=== PATIENT | female | born 1995 | race Caucasian/White ===

== ENCOUNTER 2020-06-22 15:59 | Inpatient (IN) | payer OTHER ==
[2020-06-22] MEDS ORDERED: Ampicillin 2 GM in Sodium Chloride 0.9% 100 ML IV ONE (16:07)
[2020-06-22] MEDS ORDERED: Ondansetron 4 MG/2 ML SDV IVPUSH PRN ×2 (16:07→16:21)
[2020-06-22] MEDS ORDERED: Sodium Chloride 0.9% 10 ML Syringe FLUSH PRN (16:07)
[2020-06-22] MEDS ORDERED: Nalbuphine 10 MG/1 ML Vial IVPUSH PRN (16:07)
[2020-06-22] MEDS ORDERED: Calcium Carbonate 500 MG Tab.Chew PO PRN (16:07)
[2020-06-22] MEDS ORDERED: Oxytocin/Lactated Ringers 10 UNIT/1,000 ML BAG IV SCH ×2 (16:15→18:15)
[2020-06-22] MEDS ORDERED: ePHEDrine 50 MG/ML SDV IVPUSH PRN (16:21)
[2020-06-22] MEDS ORDERED: fentaNYL 100 MCG/2 ML SDV EPIDUR PRN (16:22)
--- NOTE | 2020-06-22 16:24 | PCM.PREANE ---
Preanesthetic Assessment - Procedure Proposed Procedure: Epidural - Anesthesia/Transfusion/Family Hx Anesthesia History: Prior Anesthesia Without Reaction Family History of Anesthesia Reaction: No Transfusion History: No Prior Transfusion(s) Intubation History: Unknown - Review of Systems General: No Symptoms Pulmonary: No Symptoms Cardiovascular: No Symptoms Gastrointestinal: No Symptoms Neurological: No Symptoms Other: Reports: None - Physical Assessment NPO Status Date: 06/22/20 NPO Status Time: 18:00 Vital Signs: HR: 109 B/P: 138/87 Resp: 20 Sat: 99% Temp: 101 Height: 1.68 m Weight: 95.345 kg ASA Class: 2 Mental Status: Alert & Oriented x3 Airway Class: Mallampati = 3 Dentition: Reports: Normal Dentition, Caries Thyro-Mental Finger Breadths: 3 Mouth Opening Finger Breadths: 3 ROM/Head Extension: Full Lungs: Clear to Auscultation, Normal Respiratory Effort Cardiovascular: Regular Rate, Regular Rhythm, No Murmurs - Allergies Allergies/Adverse Reactions: Allergies Allergy/AdvReac Type Severity Reaction Status Date / Time chlorhexidine Allergy Hives Verified 06/22/20 16:07 - Anesthesia Plan Pre-Op Medication Ordered: None - Acknowledgements Anesthesia Type Planned: Epidural Pt an Appropriate Candidate for the Planned Anesthesia: Yes Alternatives and Risks of Anesthesia Discussed w Pt/Guardian: Yes Pt/Guardian Understands and Agrees with Anesthesia Plan: Yes PreAnesthesia Questionnaire - CURRENT (IN HOUSE) MEDS Current Meds: Current Medications Calcium Carbonate/Glycine (Tums) 1,000 mg PO Q2H PRN PRN Reason: Indigestion Ephedrine Sulfate (Ephedrine Sulfate) 5 mg IVPUSH ASDIRECTED PRN PRN Reason: Hypotension Fentanyl (Sublimaze) 100 mcg EPIDUR ONETIME PRN PRN Reason: Pain Fentanyl/Bupivacaine HCl (Fentanyl/Bupivacaine/Ns 2 Mcg-0.125% 100 Ml) 100 ml EPIDUR ASDIRECTED SALVADOR Ampicillin Sodium 2 gm/ Sodium (Chloride) 100 mls @ 200 mls/hr IV ONETIME ONE Stop: 06/22/20 16:36 Ampicillin Sodium 1 gm/ Sodium (Chloride) 100 mls @ 200 mls/hr IV Q4H SALVADOR Oxytocin/Lactated Ringer's (Pitocin In Lr 10 Units/1,000 Ml) 10 unit in 1,000 mls @ 500 mls/hr IV .CONTINUOUS SALVADOR Lactated Ringer's (Ringers, Lactated) 1,000 mls @ 100 mls/hr IV ASDIRECTED SALVADOR Miscellaneous Medication (Phenylephrine 1 Mg/10 Ml-Ns) 0 mg IVPUSH ONETIME ONE Stop: 06/22/20 16:22 Nalbuphine HCl (Nubain) 10 mg IVPUSH Q2H PRN PRN Reason: Pain Ondansetron HCl (Zofran) 4 mg IVPUSH Q4H PRN PRN Reason: Nausea/Vomiting Ondansetron HCl (Zofran) 4 mg IVPUSH ONETIME PRN PRN Reason: Nausea/Vomiting Sodium Chloride (Saline Flush) 10 ml FLUSH ASDIRECTED PRN PRN Reason: Keep Vein Open
[2020-06-22] MEDS ORDERED: Bupivacaine/fentaNYL/NS 100 ML Bag EPIDUR SCH (16:30)
[2020-06-22] MEDS: Lactated Ringers 1,000 ML IV SCH (17:56)
[2020-06-22] MEDS ORDERED: Ampicillin 1 GM in Sodium Chloride 0.9% 100 ML IV SCH (20:00)
--- NOTE | 2020-06-22 21:48 | PCM.LDHP ---
L&D History of Present Illness - General Date of Service: 06/22/20 Admit Problem/Dx: Patient Status Order with Admit Dx/Problem 06/22/20 16:07 Patient Status [ADT] Routine Admission Diagnosis/Problem Admission Diagnosis/Problem 06/22/20 21:40 Rd is a 25-year-old 1 para 0 white female admitted on 06/22/2020 at 39-0/7 weeks gestational age for induction of labor. Source of Information: Patient History Limitations: Reports: No Limitations - History of Present Illness Introduction:: Rd is a 25-year-old 1 para 0 white female admitted on 06/22/2020 at 39-0/7 weeks gestational age for induction of labor. Process of induction of labor its risks, benefits, alternatives of care including allowing for natural onset of labor and follow-up are all discussed in detail with patient. She ike ears understand and wishes to proceed. WEATHER FORECASTER history: Patient is 1 para 0. Her LYNDON of 06/29/2020 was determined by an early ultrasound done at 12 weeks and 3 days. It was supported by at least 2 other ultrasounds done in the . Patient had menarche at age [age]. Positive hCG was on 10/27/2019. Cycles come q. 26 days, last for 5 to 7 days. Her last menstrual period was 10/02/2019. She denies any STIs or abnormal Pap smears in the past. course: Patient's first visit was on 12/19/2019 at 12 weeks and 3 days. She is seen on a very regular basis throughout the . Her vital signs been stable throughout the . Her weight increased from a pregravida weight of 186 pounds to a final weight of 206 pounds for a 30 pound increase. Fundal height growth has been appropriate throughout the . Patient has an anterior uterine wall fibroid as seen on ultrasound. Fibroid measures 5.3 x 2.4 x 3.2 cm in 3 dimensions. Is not felt to have significantly affected the nor is felt to have a significant impact on labor and delivery. She is group B strep positive which was identified on urine culture at the beginning of . She is desiring epidural. She declines any genetic evaluation. She had a 1 hour glucose tolerance test of 152 but she passed a 3-hour GTT with values of 84, 186, 154, 106. She plans to breast-feed. The patient is rubella immune. She had her influenza shot on 02/05/2020. Her Tdap was given on 04/22/2020. She has had her varicella immunizations in March 2018. HPV immunization was in 2007. Hepatitis A x2 immunizations 12/07/2011. Hepatitis B immunization x3 on 09/02/2018 and 95 and meningococcal x2 on 12/14/2010. Laboratory testing shows blood to be a positive with a negative a ntibody screen. Her hemoglobin on first visit was 13.5 g/dL. Platelets were 289,000. She is rubella immune. RPR was nonreactive. Urine culture showed group B strep. Hepatitis B surface antigen and HIV assays were both negative. Second trimester labs showed a hemoglobin of 12.0 g/dL and platelets of 209,000. 1 hour GTT is 152. HI values were as described above. Patient had an RPR which was nonreactive on 04/07/2020. She has group B strep positive status. She is a candidate for ampicillin group B strep prophylaxis per protocol in labor delivery. Allergies: Chlorhexidine concentration Medications: vitamins 1 daily Past medical history: 1. 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 Tonsillectomy and adenoidectomy 1996. 2. Knee surgery 2008. Family history mother is alive and well at age 46 but did have a twin gestation. Father is alive with high blood pressure at age 55. 2 brothers are alive and well. 1 sister alive with asthma maternal grandmother is alive with diabetes. Maternal grandfather second heart disease age 79. Paternal grandmother is alive with seizures and questionable history of stroke. Paternal grandfather at age 93. No known family history of cancers, bleeding or blood clot disorders, anesthesia related issues or related issues. Social history: Patient is . 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 She lives in [address] She denies any significant also alcohol drugs or tobacco. Review of systems: In general patient has no complaints. She reports good activity. No significant contractions resin. Skin: Negative Lungs: No infectious symptoms or shortness of breath Cardiovascular: No chest pain or exercise intolerance Breasts: No lumps, changes in size, pain, dimpling, discharge or axillary or supraclavicular concerns. GI: Negative : Body habitus changes consistent with term Musculoskeletal: Negative Neurological: Negative Physical exam: In general the patient is well-developed, well-nourished, pleasant female of stated age in no acute distress. Skin is warm dry without lesions. HEENT, neck and back within normal limits. Lungs are clear with good breath sounds in all lung oliva. Breast exam is deferred having been done at first visit found to be normal. Patient plans to breast-feed. Cardiovascular exam shows regular and rhythm without murmurs. Abdomen is gravid with fundal height on last evaluation clinic at 39 cm. Genital per bimanual exam shows cervix to be 2 cm 7% effaced soft, -3 station, mid position. At this time is hard to reach the cervix as it is very high. Is felt that the baby is in vertex presentation. Extremities and neurological exam are grossly within normal limits. - Related Data Allergies/Adverse Reactions: Allergies Allergy/AdvReac Type Severity Reaction Status Date / Time chlorhexidine Allergy Hives Verified 06/22/20 16:07 Home Medications: Home Meds Vits #93/Iron Fum/FA [ Formula Tablet] 1 each PO DAILY 06/22/20 [History] Past Medical History HEENT History: Reports: Impaired Vision WEATHER FORECASTER History: Reports: Fibroids, - Past Surgical History HEENT Surgical History: Reports: Adenoidectomy, Tonsillectomy Musculoskeletal Surgical History: Reports: Other (See Below) Other Musculoskeletal Surgeries/Procedures:: Knee Surgery 2008 Social & Family History - Family History Family Medical History: No Pertinent Family History - Tobacco Use Tobacco Use Status *Q: Never Tobacco User Second Hand Smoke Exposure: No - Caffeine Use Caffeine Use: Reports: None - Recreational Drug Use Recreational Drug Use: No H&P Review of Systems - Review of Systems: Review Of Systems: See Below L&D Exam - Exam Exam: See Below - Vital Signs Vital Signs: Last Vital Signs Temp 37.2 C 06/22/20 16:17 Pulse 109 H 06/22/20 16:17 Resp 14 06/22/20 16:17 BP 138/87 06/22/20 16:17 Pulse Ox 95 06/22/20 16:17 Weight: 95.345 kg - Patient Data Lab Results Last 24 hrs: Laboratory Results - last 24 hr 06/22/20 06/22/20 06/22/20 Range/Units 16:24 16:24 16:33 WBC 10.75 H (3.98-10.04) K/mm3 RBC 3.88 L (3.98-5.22) M/mm3 Hgb 11.6 (11.2-15.7) gm/dl Hct 35.8 (34.1-44.9) % MCV 92.3 (79.4-94.8) fl MCH 29.9 (25.6-32.2) pg MCHC 32.4 (32.2-35.5) g/dl RDW Std Deviation 46.6 H (36.4-46.3) fL Plt Count 184 (182-369) K/mm3 MPV 11.2 (9.4-12.3) fl Neut % (Auto) 70.1 (34.0-71.1) % Lymph % (Auto) 17.6 L (19.3-51.7) % Scurry % (Auto) 10.8 (4.7-12.5) % Eos % (Auto) 0.5 L (0.7-5.8) Baso % (Auto) 0.1 (0.1-1.2) % Neut # (Auto) 7.54 H (1.56-6.13) K/mm3 Lymph # (Auto) 1.89 (1.18-3.74) K/mm3 Scurry # (Auto) 1.16 H (0.24-0.36) K/mm3 Eos # (Auto) 0.05 (0.04-0.36) K/mm3 Baso # (Auto) 0.01 (0.01-0.08) K/mm3 RPR Non-reactive (NONREACTIVE) SARS-CoV-2 RNA (KIAN) Negative (NEGATIVE) Result Diagrams: 06/22/20 16:24 Problem List Initiated/Reviewed/Updated: Yes Orders Last 24hrs: Active Orders 24 hr Category Date Time Status Patient Status [ADT] Routine ADT 06/22/20 16:07 Active Activity as Tolerated [RC] PFP Care 06/22/20 16:07 Active Communication Order [RC] ASDIRECTED Care 06/22/20 16:07 Active Notify Provider [RC] ASDIRECTED Care 06/22/20 16:21 Active Notify Provider [RC] PFP Care 06/22/20 16:07 Active Notify Provider [RC] PRN Care 06/22/20 16:07 Active Peripheral IV Care [RC] Q2HR Care 06/22/20 16:07 Active Regular Diet [DIET] Diet 06/22/20 Dinner Active BLOOD BANK HOLD SPECIMEN [BBK] Stat Lab 06/22/20 16:24 Received Ampicillin 1 gm Med 06/22/20 22:00 Active Sodium Chloride 0.9% [Normal Saline] 100 ml IV Q4H Bupivacaine/fentaNYL/NS [fentaNYL/Bupivacaine/NS 2 MCG- Med 06/22/20 16:30 Active 0.125% 100 ML] 100 ml EPIDUR ASDIRECTED Calcium Carbonate [Tums] Med 06/22/20 16:07 Active 1,000 mg PO Q2H PRN Lactated Ringers [Ringers, Lactated] 1,000 ml Med 06/22/20 16:15 Active IV ASDIRECTED Nalbuphine [Nubain] Med 06/22/20 16:07 Active 10 mg IVPUSH Q2H PRN Ondansetron [Zofran] Med 06/22/20 16:21 Active 4 mg IVPUSH ONETIME PRN Ondansetron [Zofran] Med 06/22/20 16:07 Active 4 mg IVPUSH Q4H PRN Oxytocin/Lactated Ringers [Pitocin in LR 10 Units/1,000 Med 06/22/20 16:15 Active ML] 10 unit in 1,000 ml IV .CONTINUOUS Oxytocin/Lactated Ringers [Pitocin in LR 20 Units/1,000 Med 06/22/20 21:45 Ordered ML] 20 unit in 1,000 ml IV TITRATE Sodium Chloride 0.9% [Saline Flush] Med 06/22/20 16:07 Active 10 ml FLUSH ASDIRECTED PRN ePHEDrine [ePHEDrine sulfate] Med 06/22/20 16:21 Active 5 mg IVPUSH ASDIRECTED PRN fentaNYL [Sublimaze] Med 06/22/20 16:22 Active 100 mcg EPIDUR ONETIME PRN Electronic Heart Tones Ext w TOCO [WOMSER] Oth 06/22/20 16:07 Ordered Routine Electronic Heart Tones Internal [WOMSER] Per Unit Oth 06/22/20 16:07 Ordered Routine Peripheral IV Insertion Adult [OM.PC] Routine Oth 06/22/20 16:07 Ordered Resuscitation Status Routine Resus Stat 06/22/20 16:07 Ordered Medication Orders Calcium Carbonate/Glycine (Tums) 1,000 mg PO Q2H PRN PRN Reason: Indigestion Ephedrine Sulfate (Ephedrine Sulfate) 5 mg IVPUSH ASDIRECTED PRN PRN Reason: Hypotension Fentanyl (Sublimaze) 100 mcg EPIDUR ONETIME PRN PRN Reason: Pain Fentanyl/Bupivacaine HCl (Fentanyl/Bupivacaine/Ns 2 Mcg-0.125% 100 Ml) 100 ml EPIDUR ASDIRECTED SALVADOR Oxytocin/Lactated Ringer's (Pitocin In Lr 10 Units/1,000 Ml) 10 unit in 1,000 mls @ 500 mls/hr IV .CONTINUOUS SALVADOR Lactated Ringer's (Ringers, Lactated) 1,000 mls @ 100 mls/hr IV ASDIRECTED SALVADOR Last Admin: 06/22/20 17:56 Dose: 100 mls/hr Documented by: KELLCOL Ampicillin Sodium 1 gm/ Sodium (Chloride) 100 mls @ 200 mls/hr IV Q4H SALVADOR Oxytocin/Lactated Ringer's (Pitocin In Lr 20 Units/1,000 Ml) 20 unit in 1,000 mls @ 66 mls/hr IV TITRATE SALVADOR; Protocol Nalbuphine HCl (Nubain) 10 mg IVPUSH Q2H PRN PRN Reason: Pain Ondansetron HCl (Zofran) 4 mg IVPUSH Q4H PRN PRN Reason: Nausea/Vomiting Ondansetron HCl (Zofran) 4 mg IVPUSH ONETIME PRN PRN Reason: Nausea/Vomiting Sodium Chloride (Saline Flush) 10 ml FLUSH ASDIRECTED PRN PRN Reason: Keep Vein Open Assessment/Plan Comment:: 1. Rd is a 25-year-old 1 para 0 white female admitted on 06/22/2020 at 39-0/7 weeks gestational age for induction of labor. 2. Patient is okay with epidural. 3. Patient is planning on breast-feeding 4. Patient declined genetic evaluation but is up-to-date on immunizations specifically the MMR and to the flu shot. 5. Blood is a positive Plan: 1. Anticipate 2. Pitocin induction with AROM augmentation of labor. Attempt was made to place a catheter for mechanical dilation but this was unsuccessful. 3. Support breast-feeding decision 4. Epidural as needed per patient desire
[2020-06-22] MEDS: Ampicillin 1 GM in Sodium Chloride 0.9% 100 ML IV SCH (22:10)
[2020-06-22] MEDS: Oxytocin/Lactated Ringers 20 UNIT/1,000 ML BAG IV SCH (22:20)
[2020-06-23] MEDS: Ampicillin 1 GM in Sodium Chloride 0.9% 100 ML IV SCH ×4 (02:24→14:47)
[2020-06-23] MEDS: Lactated Ringers 1,000 ML IV SCH ×4 (04:36→13:05)
--- NOTE | 2020-06-23 07:40 | PCM.SN.2 ---
- Free Text/Narrative Note: Progress note: 0515 hrs. on 06/23/2020. General patient is well-developed pleasant female in no significant distress. Contractions are reported to be mild. Vital signs are stable. Patient is afebrile. Cervix is found to be 2 cm dilated approximately 70% effaced, soft, -3 station but head is well applied to the cervix. It is mid position to just a bit posterior. AROM was accomplished with resultant clear amniotic fluid. heart tones are reassuring. Assessment: 1. 36 9-1/7-week intrauterine , slow but steady progress of labor. AROM accomplished. Plan: 1. Routine labor care, anticipate . 2. Epidural when patient is having significant discomfort has made some cervical change.
[2020-06-23] MEDS: Oxytocin/Lactated Ringers 20 UNIT/1,000 ML BAG IV SCH (09:58)
[2020-06-23] MEDS ORDERED: Bupivacaine 0.25% 10 ML SDV ONE (11:00)
[2020-06-23] MEDS ORDERED: Loratadine 10 MG Tab PO ONE (11:37)
[2020-06-23] MEDS ORDERED: Misoprostol 200 MCG Tab ONE (12:40)
[2020-06-23] MEDS ORDERED: Methylergonovine 0.2 MG/1 ML Amp ONE (12:41)
[2020-06-23] MEDS ORDERED: Lidocaine 1% 50 ML MDV ONE (15:46)
--- NOTE | 2020-06-23 17:05 | PCM.SN.2 ---
- Free Text/Narrative Note: Delivery note: Rd is a 25-year-old 1 now para 1-0-0-1 white female admitted on 06/22/2020 at 39-0/7 weeks gestational age for induction of labor. Patient underwent Pitocin induction of labor from evening of 06/22/2020 until approximately 0500 hrs. on 06/23/2020. She then underwent artificial rupture membranes with resultant clear amniotic fluid. Shortly thereafter contractions intensified and patient had an epidural placed for analgesia. She made relatively rapid progress and by approximately 1300 hrs. of was completely dilated she. She began pushing and over the course of the next 2-1/2 hoursbroth had well down to +3 station. She began to feel fatigued and discussion was held her as to the vacuum extraction delivery, risk, benefits, alternatives of care including section. She opted for vacuum extraction assistance and gave verbal consent. Vacuum extractor was placed and with 1 contraction she delivered the baby. Baby came out in direct occiput anterior position. A midline episiotomy was made. There were no further extensions of the episiotomy. The baby is completely delivered using gentle downward traction and then upward traction to deliver the anterior and posterior shoulder. No pop offs with the vacuum extraction delivery. The baby is placed on mom's abdomen. The baby was dried and nose and mouth were bulb suctioned. The cord is allowed to pulsate for approximately 2 to 3 minutes, then was clamped and cut by the baby's Father Preet. Baby was a male weighing 3470 g (7 pounds 10.4 ounces), had Apgars of 8 and 9 and was 21 inches in length. Pitocin was increased to 500 cc/h using the solution previously mixed per protocol. This to facilitate increase in uterine tone and decrease likelihood of bleeding. Cord blood was obtained. The placenta delivered at 1557 hrs. in a Gaspar presentation, appeared intact and complete and was discarded per patient desire. The episiotomy was repaired in a routine fashion using 3-0 Monocryl suture. Lidocaine 1% - 10 cc was used locally for anesthesia. Patient tolerated the procedure well. Estimated blood loss was 200 cc. Condition: Good. The patient plans to breast- feed.
[2020-06-23] MEDS ORDERED: Benzocaine/Menthol 20%-0.5% Spray 56 GM Canister TOP PRN (17:11)
[2020-06-23] MEDS ORDERED: Witch Hazel Medicated Pads 40/Jar TOP PRN (17:11)
[2020-06-23] MEDS: Ibuprofen 600 MG Tab PO PRN ×2 (17:20→23:43)
[2020-06-23] MEDS: Docusate Sodium 100 MG Cap PO SCH (20:27)
[2020-06-23] MEDS: Acetaminophen 325 MG Tab PO PRN (20:30)
[2020-06-24] MEDS: Acetaminophen 325 MG Tab PO PRN ×3 (00:18→14:14)
[2020-06-24] MEDS: oxyCODONE 5 MG Tab PO PRN ×2 (02:59→06:47)
[2020-06-24] MEDS: Ibuprofen 600 MG Tab PO PRN ×4 (05:41→21:26)
[2020-06-24] MEDS ORDERED: Nalbuphine 10 MG/1 ML Vial IVPUSH ONE (07:32)
[2020-06-24] MEDS ORDERED: Ondansetron 4 MG/2 ML SDV IVPUSH ONE (07:32)
--- NOTE | 2020-06-24 07:44 | PCM48HPAN ---
Post Anesthesia Note - EVALUATION WITHIN 48HRS OF ANESTHETIC Vital Signs in Normal Range: Yes Patient Participated in Evaluation: Yes Respiratory Function Stable: Yes Airway Patent: Yes Cardiovascular Function Stable: Yes Hydration Status Stable: Yes Pain Control Satisfactory: No (She is complaining of alot of abd pain and cramping. ) Nausea and Vomiting Control Satisfactory: Yes Mental Status Recovered: Yes Vital Signs: Last Vital Signs Temp 99.0 F 06/24/20 02:56 Pulse 86 06/24/20 02:56 Resp 18 06/24/20 02:56 BP 137/61 06/24/20 02:56 Pulse Ox 99 06/24/20 02:56
--- NOTE | 2020-06-24 07:45 | PCM.PNPP ---
- General Info Date of Service: 06/24/20 Subjective Update: 25 year old PPD1 after vacuum assisted vaginal delivery yesterday at 1541. Immediately after reported significant tail bone pain. Now having more severe lower abdominal discomfort. No heavy bleeding with it. No fevers but is having nausea and chills. Pain not controlled with any meds. Functional Status: Reports: Pain Controlled - Review of Systems General: Reports: No Symptoms HEENT: Reports: No Symptoms Pulmonary: Reports: No Symptoms Cardiovascular: Reports: No Symptoms Gastrointestinal: Reports: No Symptoms Genitourinary: Reports: No Symptoms Musculoskeletal: Reports: No Symptoms Skin: Reports: No Symptoms Neurological: Reports: No Symptoms Psychiatric: Reports: No Symptoms - General Info Date of Service: 06/24/20 - Patient Data Vital Signs - Most Recent: Last Vital Signs Temp 37.2 C 06/24/20 02:56 Pulse 86 06/24/20 02:56 Resp 18 06/24/20 02:56 BP 137/61 06/24/20 02:56 Pulse Ox 99 06/24/20 02:56 Weight - Most Recent: 95.345 kg Med Orders - Current: Current Medications Acetaminophen (Tylenol) 650 mg PO Q4H PRN PRN Reason: mild pain or fever Last Admin: 06/24/20 06:27 Dose: 650 mg Documented by: Benzocaine/Menthol (Dermoplast Pain Relief [place]) 0 gm TOP ASDIRECTED PRN PRN Reason: Perineal Comfort Measure Last Admin: 06/23/20 18:47 Dose: 1 can Documented by: Docusate Sodium (Colace) 100 mg PO BID [facility] Last Admin: 06/23/20 20:27 Dose: 100 mg Documented by: Ibuprofen (Motrin) 600 mg PO Q4H PRN PRN Reason: Mild pain or fever Last Admin: 06/24/20 05:41 Dose: 600 mg Documented by: Oxycodone HCl (Oxycodone) 5 - 10 mg PO Q6H PRN PRN Reason: Cramping Last Admin: 06/24/20 06:47 Dose: 10 mg Documented by: Prenat Multivit/Teague/Iron/Folic Ac ( Plus Iron) 1 each PO DAILY [facility] Unruly Cruz (Tucks) 1 pad TOP ASDIRECTED PRN PRN Reason: Perineal Comfort Measure Last Admin: 06/23/20 18:47 Dose: 1 tub Documented by: Discontinued Medications Calcium Carbonate/Glycine (Tums) 1,000 mg PO Q2H PRN PRN Reason: Indigestion Ephedrine Sulfate (Ephedrine Sulfate) 5 mg IVPUSH ASDIRECTED PRN PRN Reason: Hypotension Fentanyl (Sublimaze) 100 mcg EPIDUR ONETIME PRN PRN Reason: Pain Last Admin: 06/23/20 06:07 Dose: 100 mcg Documented by: Fentanyl/Bupivacaine HCl (Fentanyl/Bupivacaine/Ns 2 Mcg-0.125% 100 Ml) 100 ml EPIDUR ASDIRECTED SALVADOR Last Admin: 06/23/20 06:07 Dose: 100 ml Documented by: Ampicillin Sodium 2 gm/ Sodium (Chloride) 100 mls @ 200 mls/hr IV ONETIME ONE Stop: 06/22/20 16:36 Last Admin: 06/22/20 18:00 Dose: 200 mls/hr Documented by: Ampicillin Sodium 1 gm/ Sodium (Chloride) 100 mls @ 200 mls/hr IV Q4H [facility] Last Admin: 06/22/20 23:25 Dose: Not Given Documented by: Oxytocin/Lactated Ringer's (Pitocin In Lr 10 Units/1,000 Ml) 10 unit in 1,000 mls @ 500 mls/hr IV .CONTINUOUS SALVADOR Lactated Ringer's (Ringers, Lactated) 1,000 mls @ 100 mls/hr IV ASDIRECTED [facility] Last Admin: 06/23/20 13:05 Dose: 999 mls/hr Documented by: Oxytocin/Lactated Ringer's (Pitocin In Lr 10 Units/1,000 Ml) 10 unit in 1,000 mls @ 12 mls/hr IV TITRATE SALVADOR; Protocol Last Titration: 06/23/20 00:02 Dose: 30 munits/min, 180 mls/hr Documented by: Ampicillin Sodium 1 gm/ Sodium (Chloride) 100 mls @ 200 mls/hr IV Q4H [facility] Last Admin: 06/23/20 14:47 Dose: 200 mls/hr Documented by: Oxytocin/Lactated Ringer's (Pitocin In Lr 20 Units/1,000 Ml) 20 unit in 1,000 mls @ 66 mls/hr IV TITRATE SALVADOR; Protocol Last Admin: 06/23/20 09:58 Dose: 66 mls/hr Documented by: Lidocaine HCl (Xylocaine 1%) Confirm Administered Dose 50 ml .ROUTE .STK-MED ONE Stop: 06/23/20 15:47 Last Admin: 06/23/20 15:53 Dose: 50 ml Documented by: Loratadine (Claritin) 10 mg PO ONETIME ONE Stop: 06/23/20 11:38 Last Admin: 06/23/20 11:43 Dose: 10 mg Documented by: Methylergonovine Maleate (Methergine) Confirm Administered Dose 0.2 mg .ROUTE .STK-MED ONE Stop: 06/23/20 12:42 Last Admin: 06/23/20 16:49 Dose: Not Given Documented by: Miscellaneous Medication (Phenylephrine 1 Mg/10 Ml-Ns) 0 mg IVPUSH ONETIME ONE Stop: 06/22/20 16:22 Misoprostol (Cytotec) Confirm Administered Dose 600 mcg .ROUTE .STK-MED ONE Stop: 06/23/20 12:41 Last Admin: 06/23/20 16:49 Dose: Not Given Documented by: Nalbuphine HCl (Nubain) 10 mg IVPUSH Q2H PRN PRN Reason: Pain Nalbuphine HCl (Nubain) 10 mg IVPUSH ONETIME ONE Stop: 06/24/20 07:33 Ondansetron HCl (Zofran) 4 mg IVPUSH Q4H PRN PRN Reason: Nausea/Vomiting Ondansetron HCl (Zofran) 4 mg IVPUSH ONETIME PRN PRN Reason: Nausea/Vomiting Ondansetron HCl (Zofran) 4 mg IVPUSH ONETIME ONE Stop: 06/24/20 07:33 Sodium Chloride (Saline Flush) 10 ml FLUSH ASDIRECTED PRN PRN Reason: Keep Vein Open - Infant Interaction Support Person: - Recovery Exam Fundal Tone: Firm Fundal Level: At Umbilicus Fundal Placement: Midline Lochia Amount: Small Lochia Color: Rubra/Red Perineum Description: Other (see below) Other Perinuem Description: 2nd degree laceration with repair; episiotomy Episiotomy/Laceration: Approximated Bladder Status: Voiding Urinary Elimination: Voided - Exam General: Alert, Oriented, Cooperative, Other (writhing in bed. ) HEENT: Pupils Equal Neck: Supple Lungs: Clear to Auscultation, Normal Respiratory Effort Cardiovascular: Regular Rate, Regular Rhythm GI/Abdominal Exam: Normal Bowel Sounds, Soft, Non-Tender (not tender on palpation), No Organomegaly, No Distention Extremities: Normal Inspection, Normal Range of Motion, Non-Tender, No Pedal Edema, Normal Capillary Refill Neurological: No New Focal Deficit Psy/Mental Status: Alert, Normal Affect, Normal Mood - Problem List Review Problem List Initiated/Reviewed/Updated: Yes - My Orders Last 24 Hours: My Active Orders 06/24/20 07:31 CBC WITH AUTO DIFF [HEME] Stat COMPREHENSIVE METABOLIC PN,CMP [CHEM] Stat - Assessment Assessment:: Significant pain. Abdomen not tender to palpation but she points to low abdomen. Nausea and hot flashes/chills over past few hours. Afebrile. No fundal tenderness on exam. - differential includes non pathologic cramping, endometritis, bladder discomfort, kidney stone pain (she writhes in bed like that), or bleeding abdominally from uterine issues with delivery (however her abdomen is soft so this seems unlikely) - will get labs, run IVFluids, and get her more comfortable with IV pain medication. Watch closely today and low threshold for CT scan. Patient understands plan.
[2020-06-24] MEDS: Lactated Ringers 1,000 ML IV SCH ×2 (08:11→11:26)
[2020-06-24] MEDS: Docusate Sodium 100 MG Cap PO SCH ×2 (09:00→20:21)
[2020-06-24] MEDS ORDERED: Sodium Chloride 0.9% 10 ML Syringe FLUSH PRN (10:10)
[2020-06-24] MEDS ORDERED: Iopamidol 755 Mg/ML 100 ML Bottle IVPUSH ONE (10:10)
--- NOTE | 2020-06-24 11:06 | CT ---
CT abdomen and pelvis (without and with intravenous contrast) Findings: Multiple axial sections were obtained through the abdomen and pelvis. Study was performed without and with intravenous contrast. Delayed images were also obtained. Reconstructed coronal and sagittal images were obtained. Findings: Uterus is enlarged with cervical uterine length measuring approximately 23.8 cm. There is scattered areas of enhancement within the myometrium being seen which are most likely incidental after recent delivery. No focal hemorrhage is seen. Small focal fibroid is noted within the mid uterus measuring 1.4 cm. Cyst is noted within the right lower abdomen which measures 3.8 cm in size. Uncertain if this is due to a ovary and representing ovarian cyst or represents subserosal fibroid. Visualized lung bases show nothing acute. Liver contains no focal parenchymal abnormality. Spleen appears normal. Adrenal glands show no nodule. Both kidneys show enhancement. There is an area of diminished enhancement within the lower right kidney which is somewhat ill-defined and possibly due to an area of pyelonephritis if patient has infectious symptoms. This finding measures approximately 3.6 cm. Left kidney appears within normal limits. Pancreas appears normal. Aorta shows no aneurysmal dilatation. No retroperitoneal adenopathy or mesenteric abnormalities are seen. No discrete pelvic abnormality is otherwise appreciated. Bone window settings were reviewed which shows no acute osseous finding. Impression: 1. Enlarged uterus with overall cervical uterine length of 23.8 cm. 2. Cystic area to the right of the uterus within the lower abdomen either due to subserosal fibroid or slightly displaced ovary representing a cyst measuring 3.8 cm. 3. Ill-defined area of low enhancement within the right kidney measuring around 3.6 cm. Please correlate if patient has any symptomatic features of infection for this to represent pyelonephritis. Diagnostic code #3
[2020-06-24] MEDS: Prenatal Multivitamin with Calcium/Folic Acid/Iron Tab PO SCH (19:25)
[2020-06-25] MEDS: Ibuprofen 600 MG Tab PO PRN ×3 (01:40→11:41)
[2020-06-25] MEDS: Prenatal Multivitamin with Calcium/Folic Acid/Iron Tab PO SCH (09:10)
[2020-06-25] MEDS: Docusate Sodium 100 MG Cap PO SCH (09:10)
--- NOTE | 2020-06-25 10:07 | PCM.SN.2 ---
- Free Text/Narrative Note: Post Progress Note PPD #2 Subjective: Doing well overall. Ambulating slowly without difficulty. Lochia minimal and decreasing since yesterday. Voiding without difficulty. Tolerating small amounts of regular diet without nausea or vomiting today. She reports that she did have some mild nausea without vomiting on PPD #1. Pain improved today and able to be controlled with oral medications. Reports that her coccygeal pain has improved and she is not feeling this as much as she was on PPD #1. Breast-feeding with minimal difficulty. Objective: Vitals: Vital Signs - 24 hr 06/24/20 06/24/20 06/25/20 12:11 20:03 02:54 Temperature 36.5 C 37.1 C 36.9 C Pulse, 70 68 64 Peripheral Respiratory 18 16 16 Rate Blood Pressure 133/81 139/69 134/67 O2 Sat by Pulse 97 99 100 Oximetry Physical Exam General: Alert and oriented, no acute distress Lungs: Clear to auscultation bilaterally Heart: Regular rate and rhythm Abdomen: Soft, minimal appropriate tenderness, non-distended, fundus midline, nontender, and at the umbilicus Extremities: No edema in bilateral lower extremities, no calf tenderness bilaterally Laboratory Results - last 24 hr 06/24/20 06/25/20 Range/Units 11:35 05:09 WBC 12.51 H (3.98-10.04) K/mm3 RBC 2.91 L (3.98-5.22) M/mm3 Hgb 8.7 L (11.2-15.7) gm/dl Hct 27.6 L (34.1-44.9) % MCV 94.8 (79.4-94.8) fl MCH 29.9 (25.6-32.2) pg MCHC 31.5 L (32.2-35.5) g/dl RDW Std Deviation 46.6 H (36.4-46.3) fL Plt Count 154 L (182-369) K/mm3 MPV 11.1 (9.4-12.3) fl Neut % (Auto) 76.8 H (34.0-71.1) % Lymph % (Auto) 13.3 L (19.3-51.7) % [place] % (Auto) 8.4 (4.7-12.5) % Eos % (Auto) 0.7 (0.7-5.8) Baso % (Auto) 0.2 (0.1-1.2) % Neut # (Auto) 9.60 H (1.56-6.13) K/mm3 Lymph # (Auto) 1.67 (1.18-3.74) K/mm3 [place] # (Auto) 1.05 H (0.24-0.36) K/mm3 Eos # (Auto) 0.09 (0.04-0.36) K/mm3 Baso # (Auto) 0.02 (0.01-0.08) K/mm3 Urine Color Light yellow (Yellow) Urine Appearance Clear (Clear) Urine pH 7.0 (5.0-8.0) Ur Specific [place] 1.015 (1.005-1.030) Urine Protein Negative (Negative) Urine Glucose (UA) Negative (Negative) Urine Ketones Negative (Negative) Urine Occult Blood Negative (Negative) Urine Nitrite Negative (Negative) Urine Bilirubin Negative (Negative) Urine Urobilinogen 0.2 (0.2-1.0) Ur Leukocyte Esterase Negative (Negative) Urine RBC 0-5 (0-5) /hpf Urine WBC 0-5 (0-5) /hpf Ur Epithelial Cells Not seen (0-5) /hpf Urine Bacteria Not seen (FEW) /hpf Urine Mucus Not seen (FEW) /hpf CT of abdomen/pelvis done on 06/24/2020 Impression: 1. Enlarged uterus with overall cervical uterine length of 23.8 cm 2. Cystic area to the right of the uterus within the lower abdomen either due to subserosal fibroid or slightly displaced ovary representing a cyst measuring 3.8 cm. 3. Ill-defined area of low enhancement within the right kidney measuring around 3.6 cm. Please correlate if patient has any symptomatic features of infection for this to represent pyelonephritis ASSESSMENT: 25-year-old female -0-0-1 s/p vacuum-assisted vaginal delivery PPD #2, complicated by GBS positive status and received a total of 6 doses of ampicillin prior to delivery PLAN: Doing well Pain is improving at this time and is able to be controlled with oral medications and heating pad Breast-feeding with minimal difficulty. Assist as needed Lochia minimal. Continue to monitor for appropriate lochia. Continue routine care Discharge home today Joaquín Martin MD 10:06 AM 06/25/2020
--- NOTE | 2020-06-25 10:15 | PCM.DCSUM1 ---
Discharge Summary - Hospital Course Free Text/Narrative:: Delivery note: Rd is a 25-year-old 1 now para 1-0-0-1 white female admitted on 06/22/2020 at 39-0/7 weeks gestational age for induction of labor. Patient underwent Pitocin induction of labor from evening of 06/22/2020 until approximately 0500 hrs. on 06/23/2020. She then underwent artificial rupture membranes with resultant clear amniotic fluid. Shortly thereafter contractions intensified and patient had an epidural placed for analgesia. She made relatively rapid progress and by approximately 1300 hrs. of was completely dilated she. She began pushing and over the course of the next 2-1/2 hoursbroth had well down to +3 station. She began to feel fatigued and discussion was held her as to the vacuum extraction delivery, risk, benefits, alternatives of care including section. She opted for vacuum extraction assistance and gave verbal consent. Vacuum extractor was placed and with 1 contraction she delivered the baby. Baby came out in direct occiput anterior position. A midline episiotomy was made. There were no further extensions of the episiotomy. The baby is completely delivered using gentle downward traction and then upward traction to deliver the anterior and posterior shoulder. No pop offs with the vacuum extraction delivery. The baby is placed on mom's abdomen. The baby was dried and nose and mouth were bulb suctioned. The cord is allowed to pulsate for approximately 2 to 3 minutes, then was clamped and cut by the baby's Father Preet. Baby was a male weighing 3470 g (7 pounds 10.4 ounces), had Apgars of 8 and 9 and was 21 inches in length. Pitocin was increased to 500 cc/h using the solution previously mixed per protocol. This to facilitate increase in uterine tone and decrease likelihood of bleeding. Cord blood was obtained. The placenta delivered at 1557 hrs. in a [place] presentation, appeared intact and complete and was discarded per patient desire. The episiotomy was repaired in a routine fashion using 3-0 Monocryl suture. Lidocaine 1% - 10 cc was used locally for anesthesia. Patient tolerated the procedure well. Estimated blood loss was 200 cc. Condition: Good. The patient plans to breast- feed. Diagnosis: Stroke: No - Discharge Data Discharge Date: 06/25/20 Discharge Disposition: Home, Self-Care 01 Condition: Good - Referral to Home Health Primary Care Physician: Francois Narvaez MD - Discharge Diagnosis/Problem(s) (1) 39 weeks gestation of SNOMED Code(s): 67195524 ICD Code: Z3A.39 - 39 WEEKS GESTATION OF Status: Acute Current Visit: Yes (2) GBS (group B Streptococcus carrier), +RV culture, currently SNOMED Code(s): 4785561850695, 862700135, 9315677777541 ICD Code: O99.820 - STREPTOCOCCUS B CARRIER STATE COMPLICATING Status: Acute Current Visit: Yes (3) Vacuum extraction, delivered, current hospitalization SNOMED Code(s): 512089847 ICD Code: O66.5 - ATTEMPTED APPLICATION OF VACUUM EXTRACTOR AND FORCEPS Status: Acute Current Visit: Yes (4) Vaginal delivery SNOMED Code(s): 933788351 ICD Code: O80 - ENCOUNTER FOR FULL-TERM UNCOMPLICATED DELIVERY Status: Acute Current Visit: Yes (5) Second degree perineal laceration during delivery SNOMED Code(s): 3059079 ICD Code: O70.1 - SECOND DEGREE PERINEAL LACERATION DURING DELIVERY Status: Acute Current Visit: Yes - Patient Summary/Data Complications: Significant lower abdominal and coccygeal pain that was assessed with lab exams and CT exam. No significant evidence of abnormality causing pain was found. Consults: None Hospital Course: Rd Begum was admitted for elective induction of labor. On admission her cervix was dilated to 2 cm. She was GBS positive and started on ampicillin for GBS prophylaxis. She received a total of 6 doses prior to delivery. She was given pitocin for augmentation. Cut that she had artificial rupture of membranes with clear fluid. She was given an epidural for anesthesia. She progressed to complete and began pushing. On 06/23/2020 she had a vacuum-assisted vaginal delivery of a live male . Apgars of 8 and 9. Weight of 3470 g (7 pounds 10.4 ounces). Her course was complicated by significant lower abdominal and coccygeal pain. She was treated with 1 dose of oxycodone and her pain persisted throughout the day. She underwent a CT scanner that did not show any significant abnormalities. There was no evidence of kidney stones and there was no significant free fluid in the abdomen. In the morning of PPD #2 her pain had subsided significantly and she was having only minimal abdominal and pelvic pain at that time. Her pain was well to be well controlled on oral medications in the morning of PPD #2. She had minimal lochia. She was ambulating, tolerating a regular diet and voiding normally. She was breast-feeding with minimal difficulty. She was afebrile and her hematocrit was 27.6 on the afternoon of PPD #1. She desired to be discharged home on the morning of PPD #2. Her blood type is A+. - Patient Instructions Diet: Regular Diet as Tolerated Activity: Apply Ice, As Tolerated Activity, Other: Nothing in the vagina for 6 weeks Driving: May Drive Today Showering/Bathing: May Shower Notify Provider of: Fever, Increased Pain, Swelling and Redness, Drainage, Nausea and/or Vomiting Other/Special Instructions: Please contact your physician's office if you have heavy vaginal bleeding enough to soak a pad in less than an hour for several hours. Monitor for any signs of an infection in the breasts with severe pain or redness of the breast. - Discharge Plan *PRESCRIPTION DRUG MONITORING PROGRAM REVIEWED*: Not Applicable *COPY OF PRESCRIPTION DRUG MONITORING REPORT IN PATIENT SHILO: Not Applicable Home Medications: Home Meds Vits #93/Iron Fum/FA [ Formula Tablet] 1 each PO DAILY 06/22/20 [History] Acetaminophen [Tylenol] 650 mg PO Q4H PRN tablet 06/25/20 [Rx] Benzocaine/Menthol [Dermoplast Pain Relief [place]] 1 spray TOP ASDIRECTED PRN canister 06/25/20 [Rx] Docusate Sodium [Colace] 100 mg PO BID cap 06/25/20 [Rx] Ibuprofen [Motrin] 600 mg PO Q6H PRN tablet 06/25/20 [Rx] witch Humera [Tucks] 1 pad TOP ASDIRECTED PRN pad 06/25/20 [Rx] Referrals: Francois Narvaez MD [Primary Care Provider] - (Follow-up in 2 weeks for routine visit or earlier as needed.) - Discharge Summary/Plan Comment DC Time >30 min.: No - Patient Data Vitals - Most Recent: Last Vital Signs Temp 36.9 C 06/25/20 02:54 Pulse 64 06/25/20 02:54 Resp 16 06/25/20 02:54 BP 134/67 06/25/20 02:54 Pulse Ox 100 06/25/20 02:54 Weight - Most Recent: 95.345 kg I&O - Last 24 hours: Intake & Output 06/24/20 06/25/20 06/25/20 22:59 06:59 14:59 Intake Total 2280 Balance 2280 Lab Results - Last 24 hrs: Laboratory Results - last 24 hr 06/24/20 06/25/20 Range/Units 11:35 05:09 WBC 12.51 H (3.98-10.04) K/mm3 RBC 2.91 L (3.98-5.22) M/mm3 Hgb 8.7 L (11.2-15.7) gm/dl Hct 27.6 L (34.1-44.9) % MCV 94.8 (79.4-94.8) fl MCH 29.9 (25.6-32.2) pg MCHC 31.5 L (32.2-35.5) g/dl RDW Std Deviation 46.6 H (36.4-46.3) fL Plt Count 154 L (182-369) K/mm3 MPV 11.1 (9.4-12.3) fl Neut % (Auto) 76.8 H (34.0-71.1) % Lymph % (Auto) 13.3 L (19.3-51.7) % [place] % (Auto) 8.4 (4.7-12.5) % Eos % (Auto) 0.7 (0.7-5.8) Baso % (Auto) 0.2 (0.1-1.2) % Neut # (Auto) 9.60 H (1.56-6.13) K/mm3 Lymph # (Auto) 1.67 (1.18-3.74) K/mm3 [place] # (Auto) 1.05 H (0.24-0.36) K/mm3 Eos # (Auto) 0.09 (0.04-0.36) K/mm3 Baso # (Auto) 0.02 (0.01-0.08) K/mm3 Urine Color Light yellow (Yellow) Urine Appearance Clear (Clear) Urine pH 7.0 (5.0-8.0) Ur Specific [place] 1.015 (1.005-1.030) Urine Protein Negative (Negative) Urine Glucose (UA) Negative (Negative) Urine Ketones Negative (Negative) Urine Occult Blood Negative (Negative) Urine Nitrite Negative (Negative) Urine Bilirubin Negative (Negative) Urine Urobilinogen 0.2 (0.2-1.0) Ur Leukocyte Esterase Negative (Negative) Urine RBC 0-5 (0-5) /hpf Urine WBC 0-5 (0-5) /hpf Ur Epithelial Cells Not seen (0-5) /hpf Urine Bacteria Not seen (FEW) /hpf Urine Mucus Not seen (FEW) /hpf Med Orders - Current: Current Medications Acetaminophen (Tylenol) 650 mg PO Q4H PRN PRN Reason: mild pain or fever Last Admin: 06/24/20 14:14 Dose: 650 mg Documented by: Benzocaine/Menthol (Dermoplast Pain Relief [place]) 0 gm TOP ASDIRECTED PRN PRN Reason: Perineal Comfort Measure Last Admin: 06/23/20 18:47 Dose: 1 can Documented by: Docusate Sodium (Colace) 100 mg PO BID [place] Last Admin: 06/25/20 09:10 Dose: 100 mg Documented by: Ibuprofen (Motrin) 600 mg PO Q4H PRN PRN Reason: Mild pain or fever Last Admin: 06/25/20 06:07 Dose: 600 mg Documented by: Oxycodone HCl (Oxycodone) 5 - 10 mg PO Q6H PRN PRN Reason: Cramping Last Admin: 06/24/20 06:47 Dose: 10 mg Documented by: Prenat Multivit/[place]/Iron/Folic Ac ( Plus Iron) 1 each PO DAILY [place] Last Admin: 06/25/20 09:10 Dose: 1 each Documented by: Sodium Chloride (Saline Flush) 10 ml FLUSH ONETIME PRN PRN Reason: IV FLUSH Last Admin: 06/24/20 10:21 Dose: 10 ml Documented by: Unruly Cruz ([facility]) 1 pad TOP ASDIRECTED PRN PRN Reason: Perineal Comfort Measure Last Admin: 06/23/20 18:47 Dose: 1 tub Documented by: Discontinued Medications Bupivacaine HCl (Sensorcaine-Mpf 0.25%) 10 ml .ROUTE .STK-MED ONE Stop: 06/23/20 11:01 Calcium Carbonate/Glycine (Tums) 1,000 mg PO Q2H PRN PRN Reason: Indigestion Ephedrine Sulfate (Ephedrine Sulfate) 5 mg IVPUSH ASDIRECTED PRN PRN Reason: Hypotension Fentanyl (Sublimaze) 100 mcg EPIDUR ONETIME PRN PRN Reason: Pain Last Admin: 06/23/20 06:07 Dose: 100 mcg Documented by: Fentanyl/Bupivacaine HCl (Fentanyl/Bupivacaine/Ns 2 Mcg-0.125% 100 Ml) 100 ml EPIDUR ASDIRECTED [place] Last Admin: 06/23/20 06:07 Dose: 100 ml Documented by: Ampicillin Sodium 2 gm/ Sodium (Chloride) 100 mls @ 200 mls/hr IV ONETIME ONE Stop: 06/22/20 16:36 Last Admin: 06/22/20 18:00 Dose: 200 mls/hr Documented by: Ampicillin Sodium 1 gm/ Sodium (Chloride) 100 mls @ 200 mls/hr IV Q4H [facility] Last Admin: 06/22/20 23:25 Dose: Not Given Documented by: Oxytocin/Lactated Ringer's (Pitocin In Lr 10 Units/1,000 Ml) 10 unit in 1,000 mls @ 500 mls/hr IV .CONTINUOUS [place] Lactated Ringer's (Ringers, Lactated) 1,000 mls @ 100 mls/hr IV ASDIRECTED [facility] Last Admin: 06/23/20 13:05 Dose: 999 mls/hr Documented by: Oxytocin/Lactated Ringer's (Pitocin In Lr 10 Units/1,000 Ml) 10 unit in 1,000 mls @ 12 mls/hr IV TITRATE [place]; Protocol Last Titration: 06/23/20 00:02 Dose: 30 munits/min, 180 mls/hr Documented by: Ampicillin Sodium 1 gm/ Sodium (Chloride) 100 mls @ 200 mls/hr IV Q4H [facility] Last Admin: 06/23/20 14:47 Dose: 200 mls/hr Documented by: Oxytocin/Lactated Ringer's (Pitocin In Lr 20 Units/1,000 Ml) 20 unit in 1,000 mls @ 66 mls/hr IV TITRATE [place]; Protocol Last Admin: 06/23/20 09:58 Dose: 66 mls/hr Documented by: Lactated Ringer's (Ringers, Lactated) 1,000 mls @ 125 mls/hr IV ASDIRECTED [facility] Last Admin: 06/24/20 11:26 Dose: 500 mls/hr Documented by: Iopamidol (Isovue-370 (76%)) 100 ml IVPUSH ONETIME ONE Stop: 06/24/20 10:11 Last Admin: 06/24/20 10:21 Dose: 100 ml Documented by: Lidocaine HCl (Xylocaine 1%) Confirm Administered Dose 50 ml .ROUTE .STK-MED ONE Stop: 06/23/20 15:47 Last Admin: 06/23/20 15:53 Dose: 50 ml Documented by: Loratadine (Claritin) 10 mg PO ONETIME ONE Stop: 06/23/20 11:38 Last Admin: 06/23/20 11:43 Dose: 10 mg Documented by: Methylergonovine Maleate (Methergine) Confirm Administered Dose 0.2 mg .ROUTE .STK-MED ONE Stop: 06/23/20 12:42 Last Admin: 06/23/20 16:49 Dose: Not Given Documented by: Miscellaneous Medication (Phenylephrine 1 Mg/10 Ml-Ns) 0 mg IVPUSH ONETIME ONE Stop: 06/22/20 16:22 Misoprostol (Cytotec) Confirm Administered Dose 600 mcg .ROUTE .STK-MED ONE Stop: 06/23/20 12:41 Last Admin: 06/23/20 16:49 Dose: Not Given Documented by: Nalbuphine HCl (Nubain) 10 mg IVPUSH Q2H PRN PRN Reason: Pain Nalbuphine HCl (Nubain) 10 mg IVPUSH ONETIME ONE Stop: 06/24/20 07:33 Last Admin: 06/24/20 08:18 Dose: 10 mg Documented by: Ondansetron HCl (Zofran) 4 mg IVPUSH Q4H PRN PRN Reason: Nausea/Vomiting Ondansetron HCl (Zofran) 4 mg IVPUSH ONETIME PRN PRN Reason: Nausea/Vomiting Ondansetron HCl (Zofran) 4 mg IVPUSH ONETIME ONE Stop: 06/24/20 07:33 Last Admin: 06/24/20 08:27 Dose: 4 mg Documented by: Sodium Chloride (Saline Flush) 10 ml FLUSH ASDIRECTED PRN PRN Reason: Keep Vein Open
== END 2020-06-25 11:45 | disposition home or self-care (01) | DRG 807 ==
LOC: JD.OBCHECK 15:59 → JD.OB 15:59 → JD.OBCHECK 16:06 → JD.OB 16:07 → OBSVTOIN 06-23 15:41 → JD.OB 06-23 15:42
PROVIDERS: ADMIT Obstetrics & Gynecology; ATTEND Obstetrics & Gynecology
PROC: 00HU33Z Insertion of Infusion Device into Spinal Canal, Percutaneous Approach (ICD-10-PCS; principal; 2020-06-23)
PROC: 0W8NXZZ Division of Female Perineum, External Approach (ICD-10-PCS; principal; 2020-06-23)
PROC: 10D07Z6 Extraction of Products of Conception, Vacuum, Via Natural or Artificial Opening (ICD-10-PCS; principal; 2020-06-23)
PROC: 10907ZC Drainage of Amniotic Fluid, Therapeutic from Products of Conception, Via Natural or Artificial Opening (ICD-10-PCS; principal; 2020-06-23)
PROC: 3E0R3BZ Introduction of Anesthetic Agent into Spinal Canal, Percutaneous Approach (ICD-10-PCS; principal; 2020-06-23)
PROC: 0KQM0ZZ Repair Perineum Muscle, Open Approach (ICD-10-PCS; principal; 2020-06-23)
DX: O99.824 Streptococcus B carrier state complicating childbirth (principal); Z37.0 Single live birth; Z3A.39 39 weeks gestation of pregnancy; O70.1 Second degree perineal laceration during delivery; Z20.822 Contact with and (suspected) exposure to COVID-19
CPT/HCPCS: 01967; 36415; 51702; 59025; 59409; 74178; 74178-26; 80053; 81001; 85025; 86592; A9270-GY; J0290; J2001; J2300; J2405; J2590; J3010; J3490; J7120; Q9967; U0002